=== PATIENT | female | born 1940 | race Hispanic/Latino ===

== ENCOUNTER 2019-02-12 08:00 | Day surgery (SDC) | payer MEDICARE ==
[~2019-02-12] VITALS: Ht 160 cm; Wt 61.8 kg
[~2019-02-12 08:00] MED LIST: SODIUM CHLORIDE 0.9% 1000ML 1,000 ML IV ONE
[2019-02-12 10:05] VITALS: BP 126/53
[2019-02-12] MEDS ORDERED: PROPOFOL 10 MG/ML 20ML VIAL IV ONE (10:55)
[2019-02-12 11:10] VITALS: BP 113/52
[2019-02-12 11:15] VITALS: BP 93/52
[2019-02-12 11:20] VITALS: BP 98/41
[2019-02-12 11:25] VITALS: BP 102/48
[2019-02-12 11:30] VITALS: BP 105/49
== END 2019-02-12 11:40 | disposition home or self-care (01) ==
LOC: DAH 08:00 → ENDO 08:00
PROVIDERS: ATTEND Internal Medicine
DX: R13.10 Dysphagia, unspecified (principal); K29.50 Unspecified chronic gastritis without bleeding; K21.0 Gastro-esophageal reflux disease with esophagitis; K44.9 Diaphragmatic hernia without obstruction or gangrene; K22.70 Barrett's esophagus without dysplasia; K22.8 Other specified diseases of esophagus; E78.5 Hyperlipidemia, unspecified; E11.9 Type 2 diabetes mellitus without complications; K57.30 Diverticulosis of large intestine without perforation or abscess without bleeding; M19.90 Unspecified osteoarthritis, unspecified site; K64.9 Unspecified hemorrhoids; J43.9 Emphysema, unspecified; D64.9 Anemia, unspecified; Z80.0 Family history of malignant neoplasm of digestive organs
CPT/HCPCS: 43239; 82948 ×2; 88305; A4215; A4221; A4222; A4223; A4606; A4620; A4663; J2704; J7030